=== PATIENT | male | born 1955 | race Caucasian/White ===

== ENCOUNTER 2018-06-17 11:43 | Emergency (ER) | payer SELFPAY ==
[~2018-06-17] VITALS: Ht 182.9 cm; Wt 86.6 kg
[2018-06-17] MEDS ORDERED: LORazepam 2 MG/ML, 1ML ONE (12:20)
[2018-06-17] MEDS ORDERED: LORazepam 2 MG/ML, 1ML IM ONE (12:30)
[2018-06-17 12:35] LABS: BASOPHILS # (AUTO) 0.06 x10^3/uL (0-0.1); BASOPHILS % (AUTO) 1 % (0-1); EOSINOPHILS # (AUTO) 0.08 x10^3/uL (0-0.4); EOSINOPHILS % (AUTO) 1 % (1-7); LYMPHOCYTES # (AUTO) 1.72 x10^3/uL (1-3.4); LYMPHOCYTES % (AUTO) 19 % (22-44); MD NO; MEAN CORPUSCULAR HEMOGLOBIN 30.3 pg (27.5-34.5); MEAN CORPUSCULAR HGB CONC 33.4 g/dL (33.2-36.2); MEAN CORPUSCULAR VOLUME 90.7 fL (81-97); MONOCYTES % (AUTO) 7 % (2-9); NEUTROPHILS # (AUTO) 6.37 x10^3/uL (1.8-6.8); NEUTROPHILS % (AUTO) 72 % (42-75); PLATELET COUNT 287 x10^3/uL (130-400); RED BLOOD COUNT 5.71 x10^6/uL (4.38-5.82); RED CELL DISTRIBUTION WIDTH 13.8 % (9.4-14.8)
[2018-06-17 12:46] LABS: ANION GAP 6 mmol/L (5-15); CHLORIDE 107 mmol/L (98-107); CREATININE 0.79 mg/dL (0.7-1.3)
[2018-06-17 12:50] LABS: TROPONIN I < 0.015 ng/mL (0.000-0.045)
--- NOTE | 2018-06-17 13:15 | NUR ---
Patient reports decreased anxiety. Ambulated with a steady gait to the restroom.
[2018-06-17 13:20] VITALS: BP 137/74
--- NOTE | 2018-06-17 13:39 | NUR ---
Patient/Caregiver given discharge instructions and they have confirmed that they understand the instructions. Patient ambulatory with steady gait.
== END 2018-06-17 13:40 | disposition home or self-care (01) ==
LOC: ED 12:23
DX: F41.1 Generalized anxiety disorder (principal); I10 Essential (primary) hypertension
CPT/HCPCS: 36415; 71045; 80048; 82040; 84484; 85025; 93005; 96372; 99284; J2060

== ENCOUNTER 2019-05-01 09:15 | Emergency (ER) | payer MEDICAID ==
[~2019-05-01] VITALS: Ht 182.9 cm; Wt 80.6 kg
[2019-05-01 09:29] VITALS: BP 131/79
--- NOTE | 2019-05-01 09:41 | NUR ---
FIRST CONTACT WITH PT. PT C/O SHOULDERS AND LOWER BACK PAIN STARTED ONE MONTH AGO. STATES SHOULDER PAIN IS FROM TATTOO THAT HE GOT 2 YEARS AGO. ABLE TO AMBULATE TO TRIAGE. DENIES TRAUMA, DENIES FALLING. DENIES INCONTINENCE. PT'S AOX4. RESPS EVEN AND UNLABORED.
[2019-05-01] MEDS ORDERED: LORazepam 1MG TABLET ONE (10:16)
--- NOTE | 2019-05-01 10:42 | NUR ---
Break RN: Pt states that he has not been able to establish a PCP at the [facility], I encouraged him to try [facility] and continue trying the [facility].
[2019-05-01] MEDS ORDERED: LORazepam 1MG TABLET PO ONE (11:00)
== END 2019-05-01 10:44 | disposition home or self-care (01) ==
LOC: ED 10:20
DX: F43.9 Reaction to severe stress, unspecified (principal); F41.9 Anxiety disorder, unspecified; I10 Essential (primary) hypertension; Z88.5 Allergy status to narcotic agent; Z88.2 Allergy status to sulfonamides
CPT/HCPCS: 99283

== ENCOUNTER 2019-07-08 01:32 | Emergency (ER) | payer MEDICAID ==
[~2019-07-08] VITALS: Ht 182.9 cm; Wt 80.0 kg
--- NOTE | 2019-07-08 01:35 | NUR ---
TASK RN: PEDRO FENTON W/ CO CHEST PRESSURE X 24 HOURS. PAIN RADIATES TO NECK, "TIGHT". NON-SPECIFIC ONSET. NO AGGRAVATING OR ALLEVIATING FACTORS. 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 PT REPORTS HX OF ANXIETY, HAS BEEN OUT OF XANEX RX X ONE WEEK BP/SPO2/ECG MONITORING IN PLACE. NSR ON MONITOR. EKG COMPLETED BY [employer] UPON ARRIVAL. Addendum: 07/08/19 at 0157 by FERMIN REPORT TO PRIMARY RNSHANIA
[2019-07-08] MEDS ORDERED: ALBUTEROL SULFATE 2.5 MG/3 ML NPPB ONE (02:00)
[2019-07-08] MEDS ORDERED: ALBUTEROL SULFATE 2.5 MG/3 ML ONE (02:00)
[2019-07-08 02:12] LABS: BASOPHILS # (AUTO) 0.01 x10^3/uL (0-0.1); BASOPHILS % (AUTO) 0 % (0-1); EOSINOPHILS # (AUTO) 0.02 x10^3/uL (0-0.4); EOSINOPHILS % (AUTO) 0 % (1-7); LYMPHOCYTES % (AUTO) 8 % (22-44); MD NO; MEAN CORPUSCULAR HEMOGLOBIN 31.2 pg (27.5-34.5); MEAN CORPUSCULAR HGB CONC 33.5 g/dL (33.2-36.2); MEAN CORPUSCULAR VOLUME 93.1 fL (81-97); MONOCYTES # (AUTO) 0.73 x10^3/uL (0.2-0.8); MONOCYTES % (AUTO) 8 % (2-9); NEUTROPHILS # (AUTO) 7.45 x10^3/uL (1.8-6.8); NEUTROPHILS % (AUTO) 84 % (42-75); PLATELET COUNT 257 x10^3/uL (130-400); RED BLOOD COUNT 5.37 x10^6/uL (4.38-5.82)
[2019-07-08 02:24] LABS: ALANINE AMINOTRANSFERASE 24 U/L (12-78); ALBUMIN 3.3 g/dL (3.4-5.0); ANION GAP 5 mmol/L (5-15); CALCIUM 8.3 mg/dL (8.5-10.1); CHLORIDE 102 mmol/L (98-107); CREATININE 0.87 mg/dL (0.7-1.3)
[2019-07-08 02:28] LABS: ALKALINE PHOSPHATASE 58 U/L (45-117); BILIRUBIN,TOTAL 0.6 mg/dL (0.2-1.0); TOTAL PROTEIN 6.8 g/dL (6.4-8.2); TROPONIN I < 0.015 ng/mL (0.000-0.045)
[2019-07-08] MEDS ORDERED: LORazepam 2 MG/ML, 1ML ONE (02:58)
[2019-07-08] MEDS ORDERED: LORazepam 2 MG/ML, 1ML IVPush ONE (03:00)
[2019-07-08 04:24] VITALS: BP 136/74
== END 2019-07-08 03:51 ==
LOC: ED 03:50
DX: R07.89 Other chest pain (principal); F41.1 Generalized anxiety disorder; I10 Essential (primary) hypertension; J44.9 Chronic obstructive pulmonary disease, unspecified; F17.200 Nicotine dependence, unspecified, uncomplicated
CPT/HCPCS: 36415; 71045; 80053; 83880; 84484; 85025; 93005; 94640; 96374; 99284; J2060; J7613

== ENCOUNTER 2019-10-24 10:21 | Emergency (ER) | payer MEDICAID ==
[~2019-10-24] VITALS: Ht 182.9 cm; Wt 83.9 kg
[2019-10-24 10:35] VITALS: BP 145/88
== END 2019-10-24 11:46 | disposition home or self-care (01) ==
LOC: ED 11:24
DX: F41.1 Generalized anxiety disorder (principal); J44.9 Chronic obstructive pulmonary disease, unspecified; I10 Essential (primary) hypertension; F17.200 Nicotine dependence, unspecified, uncomplicated; Z76.0 Encounter for issue of repeat prescription
CPT/HCPCS: 99281

== ENCOUNTER 2019-11-24 09:04 | Emergency (ER) | payer MEDICAID ==
[~2019-11-24] VITALS: Ht 182.9 cm; Wt 84.0 kg
[2019-11-24 09:13] VITALS: BP 128/96
--- NOTE | 2019-11-24 10:08 | NUR ---
PT RESTING CALMLY IN GURNEY. PT HAS CALL LIGHT WITHIN REACH. AWAITING ERP EVAL
== END 2019-11-24 11:16 | disposition home or self-care (01) ==
LOC: ED 10:46
DX: F41.1 Generalized anxiety disorder (principal); I10 Essential (primary) hypertension; J44.9 Chronic obstructive pulmonary disease, unspecified; G20 Parkinson's disease
CPT/HCPCS: 99283

== ENCOUNTER 2019-12-24 17:46 | Emergency (ER) | payer MEDICAID ==
[~2019-12-24] VITALS: Ht 182.9 cm; Wt 85.5 kg
--- NOTE | 2019-12-24 18:02 | NUR ---
Pt ambulated to room 11 c/o rlq pain, distended abdomen and abnormal bowel pattern x2 days. Pt took stool softener and tums with no relief. Pt anxious on presentation with rapid breathing, a&ox4. Monitors in place, call light within reach.
[2019-12-24] MEDS ORDERED: MORPHINE SULFATE 4 MG/ML, 1ML ONE (18:53)
[2019-12-24] MEDS ORDERED: ONDANSETRON 2MG/ML, 2ML ONE (18:53)
[2019-12-24] MEDS ORDERED: MORPHINE SULFATE 4 MG/ML, 1ML IVPush PRN (19:00)
[2019-12-24] MEDS ORDERED: ONDANSETRON 2MG/ML, 2ML IVPush ONE (19:00)
[2019-12-24 19:06] LABS: BASOPHILS # (AUTO) 0.04 x10^3/uL (0-0.1); BASOPHILS % (AUTO) 1 % (0-1); EOSINOPHILS # (AUTO) 0.32 x10^3/uL (0-0.4); EOSINOPHILS % (AUTO) 4 % (1-7); LYMPHOCYTES # (AUTO) 2.33 x10^3/uL (1-3.4); LYMPHOCYTES % (AUTO) 27 % (22-44); MD NO; MEAN CORPUSCULAR HEMOGLOBIN 31.2 pg (27.5-34.5); MEAN CORPUSCULAR HGB CONC 33.7 g/dL (33.2-36.2); MEAN CORPUSCULAR VOLUME 92.5 fL (81-97); MEAN PLATELET VOLUME 7.1 fL (7.4-10.4); MONOCYTES # (AUTO) 0.79 x10^3/uL (0.2-0.8); MONOCYTES % (AUTO) 9 % (2-9); NEUTROPHILS # (AUTO) 5.04 x10^3/uL (1.8-6.8); NEUTROPHILS % (AUTO) 59 % (42-75); PLATELET COUNT 285 x10^3/uL (130-400); RED BLOOD COUNT 5.58 x10^6/uL (4.38-5.82); RED CELL DISTRIBUTION WIDTH 13.8 % (9.4-14.8)
[2019-12-24 19:14] LABS: ALBUMIN 3.7 g/dL (3.4-5.0); ANION GAP 4 mmol/L (5-15); CALCIUM 9.7 mg/dL (8.5-10.1); CHLORIDE 106 mmol/L (98-107); CREATININE 0.83 mg/dL (0.7-1.3)
[2019-12-24 19:19] LABS: ALANINE AMINOTRANSFERASE 57 U/L (12-78); ALKALINE PHOSPHATASE 65 U/L (45-117); BILIRUBIN,TOTAL 0.2 mg/dL (0.2-1.0); TOTAL PROTEIN 7.4 g/dL (6.4-8.2)
[2019-12-24] MEDS ORDERED: OMNIPAQUE 350 MG/ML, 100ML BOTTLE ONE (19:57)
[2019-12-24 20:07] VITALS: BP 147/60
[2019-12-24 20:52] LABS: MICROSCOPIC NOT IND
== END 2019-12-24 20:36 | disposition home or self-care (01) ==
LOC: ED 19:17
DX: K85.20 Alcohol induced acute pancreatitis without necrosis or infection (principal); R10.31 Right lower quadrant pain; I10 Essential (primary) hypertension; J44.9 Chronic obstructive pulmonary disease, unspecified; G20 Parkinson's disease; F17.200 Nicotine dependence, unspecified, uncomplicated
CPT/HCPCS: 36415; 74177; 80053; 81003; 83690; 85025; 96374; 96375; 99285; J2270; J2405; Q9967

== ENCOUNTER 2020-05-06 12:29 | Emergency (ER) | payer MEDICAID ==
[~2020-05-06] VITALS: Ht 182.9 cm; Wt 86.8 kg
[2020-05-06] MEDS ORDERED: FAMOTIDINE 20 MG TABLET ONE (13:02)
[2020-05-06] MEDS ORDERED: DIPHENHYDRAMINE 25 MG CAPSULE ONE (13:02)
--- NOTE | 2020-05-06 13:11 | NUR ---
PT MEDICATED PER ERP ORDER. CALL LIGHT WITHIN REACH.
[2020-05-06 13:30] VITALS: BP 142/92
[2020-05-06] MEDS ORDERED: FAMOTIDINE 20 MG TABLET PO ONE (13:30)
[2020-05-06] MEDS ORDERED: DIPHENHYDRAMINE 25 MG CAPSULE PO ONE (13:30)
== END 2020-05-06 13:33 | disposition home or self-care (01) ==
LOC: ED 13:12
DX: L03.114 Cellulitis of left upper limb (principal); I10 Essential (primary) hypertension; F17.290 Nicotine dependence, other tobacco product, uncomplicated
CPT/HCPCS: 99283; Q0163

== ENCOUNTER 2020-08-21 10:23 | Emergency (ER) | payer MEDICAID ==
[~2020-08-21] VITALS: Ht 182.9 cm; Wt 85.0 kg
[2020-08-21] MEDS ORDERED: ONDANSETRON 2MG/ML, 2ML IVPush ONE (11:00)
[2020-08-21] MEDS ORDERED: SODIUM CHLORIDE FLUSH 10ML SYR IVF ONE (11:00)
[2020-08-21] MEDS ORDERED: MORPHINE SULFATE 4 MG/ML, 1ML IVPush PRN (11:00)
[2020-08-21] MEDS ORDERED: ONDANSETRON 2MG/ML, 2ML ONE (11:09)
[2020-08-21] MEDS ORDERED: MORPHINE SULFATE 4 MG/ML, 1ML ONE (11:09)
[2020-08-21 11:18] LABS: BASOPHILS % (AUTO) 0 % (0-1); EOSINOPHILS % (AUTO) 2 % (1-7); LYMPHOCYTES % (AUTO) 22 % (22-44); MEAN CORPUSCULAR HEMOGLOBIN 31.5 pg (27.5-34.5); MEAN CORPUSCULAR HGB CONC 34.5 g/dL (33.2-36.2); MEAN PLATELET VOLUME 6.7 fL (7.4-10.4); MONOCYTES % (AUTO) 10 % (2-9); NEUTROPHILS % (AUTO) 66 % (42-75); PLATELET COUNT 308 x10^3/uL (130-400); RED BLOOD COUNT 5.58 x10^6/uL (4.38-5.82)
[2020-08-21 11:22] LABS: MD NO
--- NOTE | 2020-08-21 11:24 | NUR ---
PT HAS CO ABDOMINAL PAIN W CRAMPING IN RLQ. NO N/V. DENIES PAINFUL OR DIFFICULTY URINATING. DENIES CP. PT ALSO ANXIOUS. DENIES BLOOD IN STOOL OR EMESIS IV ESTABLISHED, UA SENT.
[2020-08-21 11:28] LABS: ALANINE AMINOTRANSFERASE 69 U/L (12-78); CALCIUM 9.1 mg/dL (8.5-10.1); CREATININE 0.85 mg/dL (0.7-1.3)
[2020-08-21 11:30] LABS: ALKALINE PHOSPHATASE 60 U/L (45-117); BILIRUBIN,TOTAL 0.6 mg/dL (0.2-1.0); TOTAL PROTEIN 7.5 g/dL (6.4-8.2)
[2020-08-21 11:59] LABS: CHLORIDE 106 mmol/L (98-107)
--- NOTE | 2020-08-21 12:07 | NUR ---
CALLED LAB, PER LAB URINE IS LOGGED.
[2020-08-21 12:09] LABS: ANION GAP 7 mmol/L (5-15)
[2020-08-21 12:18] LABS: MICROSCOPIC NOT IND
--- NOTE | 2020-08-21 13:48 | NUR ---
BREAK RN: PT IN CT.
[2020-08-21 13:56] VITALS: BP 149/89
--- NOTE | 2020-08-21 13:56 | NUR ---
BREAK RN: PT REQUESTING FOOD, EDUCATED ON NEED TO WAIT, PT STATES ONLY HAD A SANDWICH THIS MORNING AND IS STILL HUNGRY. EDUCATED ON ED PROCESS.
[2020-08-21] MEDS ORDERED: OMNIPAQUE 350 MG/ML, 100ML BOTTLE ONE (13:58)
--- NOTE | 2020-08-21 13:59 | NUR ---
BREAK RN: PT REQUESTING WATER, EDUCATED ON NEED TO REMAIN NPO UNTIL CT RESULTS. PT STATES "I'M GOING TO [facility] TO ". EDUCATED ON ED PROCESS.
== END 2020-08-21 14:51 | disposition home or self-care (01) ==
LOC: ED 11:59
DX: R10.31 Right lower quadrant pain (principal); R11.0 Nausea; Z87.891 Personal history of nicotine dependence
CPT/HCPCS: 36415; 74177; 80053; 81003; 85025; 96374; 96375; 99285; J2270; J2405; Q9967